=== PATIENT | female | born 1965 | race Caucasian/White ===

== ENCOUNTER → 2016-09-17 | Outpatient (CLI) | payer BC ==
[~2016-09-17] MED LIST: CALC500C3 PO; CALCCAP7 PO; CHONCAP PO; GLUCTAB7 PO; HYOS1TAB PO; INDA1TAB3 PO; LUMINEX PO; MULT-506 PO; SIMV10TA2 PO; [UNRECOGNIZED DRUG - REMARK] PO
--- NOTE | 2016-09-18 13:25 | MAMMOGRAPHY REPORT ---
BILATERAL DIGITAL SCREENING MAMMOGRAM TOMOSYNTHESIS WITH CAD: 09/17/2016 CLINICAL HISTORY: Routine screening examination. TECHNIQUE: Breast tomosynthesis in addition to standard 2D mammography was performed. Current study was also evaluated with a Computer Aided Detection (CAD) system. COMPARISON: Comparison is made to exams dated: 09/14/2015 mammogram, 09/13/2014 mammogram, 08/29/2012 m ammogram - [facility], 05/30/2009, 06/22/2010 mammogram, and 06/25/2011 mammogram - [facility]. BREAST COMPOSITION: The tissue of both breasts is heterogeneously dense, which may obscure small ma sses. FINDINGS: The parenchymal pattern is similar to prior exams. There is stable asymmetry in the far superior left breast on the MLO view. No developing mass, architectural distortion or cluster of goodman spicious microcalcifications is seen in either breast. IMPRESSION: ACR BI-RADS CATEGORY 2: BENIGN There is no mammographic evidence of malignancy. A 1 year screening mammogram is recommended. The p atient will receive written notification of the results. Approximately 10% of breast cancers are not detected with mammography. A negative mammographic repor t should not delay biopsy if a clinically suggestive mass is present. Jeannette eDleon M.D. ay/:09/17/2016 17:02:32 Energy Project Engineer: Seema CANTOR)(M), [facility] letter sent: Normal 1/2 BI-RADS Code: ACR BI-RADS Category 2: Benign
== END | disposition home or self-care (01) ==
LOC: C.MAMM 13:04
PROVIDERS: ATTEND Internal Medicine
DX: Z12.31 Encounter for screening mammogram for malignant neoplasm of breast (principal)

== ENCOUNTER → 2016-10-19 | Outpatient (CLI) | payer BC ==
[2016-10-19 09:33] LABS: BASO % 0.7 %; BASO ABS # 0.04 K/uL (0-0.2); COMPLETE YES; EOS % 4.7 %; HEMATOCRIT 41.2 % (37-47); IG% 0.2 %; LYMPH % 35.3 %; MEAN CELL VOLUME 86.4 fL (80-100); MEAN CORPUSCULAR HEMOGLOBIN 29.6 pg (25-34); MEAN CORPUSCULAR HGB CONC 34.2 g/dl (32-36); MEAN PLATELET VOLUME 8.6 fL (7.4-10.4); MONO % 6.4 %; NEUT % 52.7 %; PLATELET COUNT 283 K/uL (130-400); RED BLOOD COUNT 4.77 M/uL (4.2-5.4); WHITE BLOOD COUNT 5.95 K/uL (4.8-10.8)
[2016-10-19 10:06] LABS: ESTIMATED AVERAGE GLUCOSE 111 mg/dl; HA1C FLAG Normal (Normal)
[2016-10-19 10:13] LABS: ALT/SGPT 20 U/L (12-78); AST/SGOT 16 U/L (15-37); BLOOD UREA NITROGEN 13 mg/dl (7-18); BUN/CREATININE RATIO 20.8 (10-20); CALCIUM 9.1 mg/dl (8.5-10.1); CARBON DIOXIDE 33 mmol/L (21-32); CHLORIDE 99 mmol/L (98-107); CHOLESTEROL 201 mg/dl (0-200); CREATININE 0.62 mg/dl (0.60-1.20); GLUCOSE 92 mg/dl (70-99); POTASSIUM 2.8 mmol/L (3.5-5.1); SODIUM 139 mmol/L (136-145)
[2016-10-19 10:23] LABS: CHOLESTEROL/HDL RATIO 3.9; HDL CHOLESTEROL 52 mg/dl; LDL CHOLESTEROL CALCULATED 129 mg/dl; TRIGLYCERIDES 99 mg/dl (0-150); VERY LOW DENSITY LIPOPROT CALC 20 mg/dl
== END | disposition home or self-care (01) ==
LOC: C.LAB1850 08:42
PROVIDERS: ATTEND Internal Medicine
DX: E78.5 Hyperlipidemia, unspecified (principal)

== ENCOUNTER → 2017-03-04 | Outpatient (CLI) | payer BC ==
[~2017-03-04] MED LIST changes: -CHONCAP PO
== END | disposition home or self-care (01) ==
LOC: C.PAPS 16:29
PROVIDERS: ATTEND Obstetrics & Gynecology
DX: Z01.419 Encounter for gynecological examination (general) (routine) without abnormal findings (principal); R87.610 Atypical squamous cells of undetermined significance on cytologic smear of cervix (ASC-US)

== ENCOUNTER → 2017-03-05 | Outpatient (CLI) | payer BC ==
[~2017-03-05] MED LIST changes: +GADAVIST IV PRN
--- NOTE | 2017-03-05 12:17 | DIAGNOSTIC IMAGING REPORT ---
MRI OF THE BRAIN WITHOUT AND WITH IV CONTRAST CLINICAL HISTORY: MEN ANGIOMA COMPARISON STUDY: 01/10/2016 TECHNIQUE: Utilizing a 1.5 Kacey magnet and dedicated coil, multiplanar, multiecho imaging of the brain was performed pre and postcontrast administration. IV administration of 8.5 mL of Gadavist contrast was uneventful. FINDINGS: Unchanged exam compared to the prior study. The right parietal meningioma is unchanged in dimension with current dimensions of 7 x 4 mm. Signal characteristics of the remainder the brain remain unremarkable. Stable 4 mm enhancing focus superior aspect left internal auditory canal. No new or interval findings. No evidence for progressive process. Sella and parasellar region is unremarkable. Minimal foci of increased signal within the periventricular deep white matter regions also stable. IMPRESSION: 1. Stable exam. 2. Unchanging findings of a left retromastoid craniectomy 3. Unchanging size of a 4 mm nodular enhancing focus superior aspect left internal auditory canal. 4. Unchanging right parietal meningioma Electronically signed by: Dario Ocasio M.D. 03/05/2017 12:16 PM Dictated Date/Time: 03/05/2017 12:10 PM
== END | disposition home or self-care (01) ==
LOC: C.MRI 09:16
PROVIDERS: ATTEND Neurological Surgery
DX: D32.9 Benign neoplasm of meninges, unspecified (principal)

== ENCOUNTER → 2017-03-06 | Day surgery (SDC) | payer BC ==
[2017-02-25 12:30] VITALS: Ht 149.9 cm; Wt 54.5 kg
[~2017-03-06] VITALS: Ht 149.9 cm; Wt 54.5 kg
[~2017-03-06] MED LIST changes: -GADAVIST IV PRN; +LIDOCAINE HCL 2% 2 ML VIAL (20MG/ML) ONE; +PROPOFOL IV EMULSION 10 MG/ML 20 ML VIAL IV ONE
--- NOTE | 2017-03-06 13:25 | Endo History and Physical ---
History & Physical Date of Service: Mar 06, 2017. Chief Complaint: Screening Referring Physician: Diego History of Present Illness 51 yo CF who presents for screening colonoscopy. Past Surgical History Hx Cardiac Surgery: No Hx Internal Defibrillator: No Hx Pacemaker: No Hx Abdominal Surgery: No Hx of Implantable Prosthesis: No Hx Post-Op Nausea and Vomiting: No Hx Cancer Surgery: No Hx Thoracic Surgery: No Hx Orthopedic: No Hx Urinary Tract Surgery: Yes (BLADDER TACK) Family History IBD Social History Smoking Status: Never Smoker Hx Substance Use: No Hx Alcohol Use: Yes (rare-socially) Allergies Coded Allergies: Tetracycline (Verified Allergy, Intermediate, HIVES, 03/05/17) Current Medications Reported Home Medications Medications Dose Route/Sig Max Daily Dose Days Date Category Dose Instructions Levsin (Hyoscyamine Sulfate) 0.125 Mg Tab 0.125 Mg PO PRN 02/25/17 Reported Tums (Calcium Carbonate) 500 Mg Chew 2 Tab PO PRN 02/25/17 Reported Multivitamin (Multivitamins) Tab 1 Tab PO QAM 02/25/17 Reported Glucosamine Chondroitin (Sefeifezmwb-Ttfewwxzjzv-Hra C-) 1 Tab Tab 1 Tab PO QAM 02/25/17 Reported Lozol (Indapamide) 1.25 Mg Tab 1.25 Mg PO HS 01/04/16 Reported [luminex] 1 Tab PO PRN 03/17/13 Reported herbal supplement for anxiety [selwise] 1 Tab PO QAM 03/17/13 Reported herbal supplement-HAIR AND SKIN NAILS Calcium Plus Vitamin D (Calcium Carbonate-Vitamin D) 1 Cap Cap 2 Tab PO DAILY AFTERNOON 03/17/13 Reported Zocor (Simvastatin) 10 Mg Tab 10 Mg PO QPM 03/17/13 Reported Vital Signs Weight (Kilograms): 54.55 Height (Feet): 4 Height (Inches): 11 Date Time Temp Pulse Resp B/P (MAP) Pulse Ox O2 Delivery O2 Flow Rate FiO2 03/06/17 13:03 36.9 63 18 128/68 (88) 99 Room Air Physical Exam General Appearance: WD/WN, no apparent distress Respiratory/Chest: Auscultation: breath sounds normal Cardiovascular: Heart Auscultation: RRR Abdomen: Bowel Sounds: normal Inspection & Palpation: soft, non-distended, no tenderness, guarding & rebound Assessment and Plan Assessment: 51 yo CF who presents for screening colonoscopy. Plan: Proceed with colonoscopy.
--- NOTE | 2017-03-06 14:02 | Discharge Instructions ---
Endoscopy Patient Instructions Date / Procedure(s) Performed Mar 06, 2017. Colonoscopy Allergy Information Coded Allergies: Tetracycline (Verified Allergy, Intermediate, HIVES, 03/05/17) Discharge Date / Findings Mar 06, 2017. Melanosis coli Internal hemorrhoids Medication Instructions OK to resume all medications today as prescribed Reported Home Medications Medications Dose Route/Sig Max Daily Dose Days Date Category Dose Instructions Levsin (Hyoscyamine Sulfate) 0.125 Mg Tab 0.125 Mg PO PRN 02/25/17 Reported Tums (Calcium Carbonate) 500 Mg Chew 2 Tab PO PRN 02/25/17 Reported Multivitamin (Multivitamins) Tab 1 Tab PO QAM 02/25/17 Reported Glucosamine Chondroitin (Ujswdolojjo-Mlomcnrnolg-Pnz C-) 1 Tab Tab 1 Tab PO QAM 02/25/17 Reported Lozol (Indapamide) 1.25 Mg Tab 1.25 Mg PO HS 01/04/16 Reported [luminex] 1 Tab PO PRN 03/17/13 Reported herbal supplement for anxiety [selwise] 1 Tab PO QAM 03/17/13 Reported herbal supplement-HAIR AND SKIN NAILS Calcium Plus Vitamin D (Calcium Carbonate-Vitamin D) 1 Cap Cap 2 Tab PO DAILY AFTERNOON 03/17/13 Reported Zocor (Simvastatin) 10 Mg Tab 10 Mg PO QPM 03/17/13 Reported Provider Instructions Activity Restrictions - No exercising or heavy lifting for 24 hours. - Do not drink alcohol the day of the procedure. - Do not drive a car or operate machinery until the day after the procedure. - Do not make any important decisions or sign important papers in 24 hours after the procedure. Following Day: - Return to full activity which may include returning to work/school. Diet Start your diet with liquids and light foods (jello, soup, juice, toast). Then eat your usual diet if not nauseated. Treatment For Common After Affects For mild abdominal pain, bloating, or excessive gas: - Rest - Eat lightly - Lie on right side Follow-Up Information Follow-up with Diego as scheduled Anesthesia Information What You Should Know You have had a procedure that required some medicine to reduce anxiety and discomfort. This treatment is called moderate sedation. After receiving the treatment, you may be sleepy, but you will be able to breathe on your own. The effects of the treatment may last for several hours. Follow these instructions along with Activity/Diet recommendations noted above: * Do NOT do anything where dizziness or clumsiness would be dangerous. * Rest quietly at home today, then you can be up and about tomorrow. * Have a responsible person stay with you the rest of today. * You may have had an I.V. today. If so, you may take the dressing off later today. Recommendations Call your doctor if: * Trouble breathing * Continuous vomiting for more than 24 hours * Temperature above 101 degrees * Severe abdominal pain or bloating * Pain not relieved by pain medicine ordered * There is increased drainage or redness from any incision * A large amount of rectal bleeding greater than 2-3 tablespoons. (If you had a polyp/s removed or have hemorrhoids, a small amount of blood - from the rectum is to be expected.) * You have any unanswered questions or concerns. IN THE EVENT OF A SERIOUS EMERGENCY, GO TO THE NEAREST EMERGENCY ROOM Your discharge instructions were prepared by provider Isrrael Talavera. Patient Instructions Signature Page Leny Pineda Patient (or Guardian) Signature/Date: I have read and understand the instructions given to me by my caregivers. Caregiver/RN/Doctor Signature/Date: The above-named patient and/or guardian has received patient instructions on this date. + Original Patient Signature Page (only) stays with chart. Please make copy for patient.
--- NOTE | 2017-03-06 14:08 | Anesthesiology Progress Note ---
Anesthesia Post Op Note Date & Time Mar 06, 2017 at 14:08 Vital Signs Pain Intensity: 0 Vital Signs Past 12 Hours Date Time Temp Pulse Resp B/P (MAP) Pulse Ox O2 Delivery O2 Flow Rate FiO2 03/06/17 13:03 36.9 63 18 128/68 (88) 99 Room Air Notes Mental Status: alert / awake / arousable, participated in evaluation Pt Amnestic to Procedure: Yes Nausea / Vomiting: adequately controlled Pain: adequately controlled Airway Patency, RR, SpO2: stable & adequate BP & HR: stable & adequate Hydration State: stable & adequate Anesthetic Complications: no major complications apparent
--- NOTE | 2017-03-06 14:10 | GI REPORT ---
Procedure Date: 03/06/2017 1:39 PM Procedure: Colonoscopy Indications: Screening for colorectal malignant neoplasm Medicines: Monitored Anesthesia Care Complications: No immediate complications. Estimated Blood Loss: Estimated blood loss: none. Procedure: Pre-Anesthesia Assessment: - Prior to the procedure, a History and Physical was performed, and patient medications and allergies were reviewed. The patient's tolerance of previous anesthesia was also reviewed. The risks and benefits of the procedure and the sedation options and risks were discussed with the patient. All questions were answered, and informed consent was obtained. Prior Anticoagulants: The patient has taken no previous anticoagulant or antiplatelet agents. ASA Grade Assessment: II - A patient with mild systemic disease. After reviewing the risks and benefits, the patient was deemed in satisfactory condition to undergo the procedure. After I obtained informed consent, the scope was passed under direct vision. Throughout the procedure, the patient's blood pressure, pulse, and oxygen saturations were monitored continuously. The On-site loaner was introduced through the anus and advanced to the terminal ileum. The colonoscopy was performed without difficulty. The patient tolerated the procedure well. The quality of the bowel preparation was good. The terminal ileum, ileocecal valve, appendiceal orifice, and rectum were photographed. Findings: A diffuse area of mild melanosis was found in the entire colon. Non-bleeding internal hemorrhoids were found during retroflexion. The hemorrhoids were small. Impression: - Melanosis in the colon. - Non-bleeding internal hemorrhoids. - No specimens collected. Recommendation: - Resume previous diet. - Continue present medications. - Repeat colonoscopy in 10 years for surveillance. - Return to primary care physician as previously scheduled. Isrrael Talavera, DO 03/06/2017 2:10:12 PM This report has been signed electronically. Note Initiated On: 03/06/2017 1:39 PM I attest to the content of the Intraoperative Record and orders documented therein, exceptions below
[2017-03-06 14:17] VITALS: BP 106/58; PULSE 66; O2SAT 100
== END | disposition home or self-care (01) ==
LOC: C.GI 12:33
PROVIDERS: ATTEND Internal Medicine
DX: Z12.11 Encounter for screening for malignant neoplasm of colon (principal); K63.89 Other specified diseases of intestine; K64.8 Other hemorrhoids

== ENCOUNTER → 2017-05-06 | Outpatient (CLI) | payer BC ==
[~2017-05-06] MED LIST changes: -LIDOCAINE HCL 2% 2 ML VIAL (20MG/ML) ONE; -PROPOFOL IV EMULSION 10 MG/ML 20 ML VIAL IV ONE
[2017-05-06 13:17] LABS: BASO % 0.3 %; BASO ABS # 0.03 K/uL (0-0.2); COMPLETE YES; EOS % 1.3 %; HEMATOCRIT 40.3 % (37-47); IG% 0.2 %; LYMPH % 19.4 %; LYMPH ABS # 1.85 K/uL (1.2-3.4); MEAN CORPUSCULAR HGB CONC 34.5 g/dl (32-36); MEAN PLATELET VOLUME 8.5 fL (7.4-10.4); MONO % 4.7 %; NEUT % 74.1 %; PLATELET COUNT 315 K/uL (130-400); RED BLOOD COUNT 4.63 M/uL (4.2-5.4); WHITE BLOOD COUNT 9.52 K/uL (4.8-10.8)
[2017-05-06 13:24] LABS: URINE APPEARANCE CLEAR (CLEAR); URINE COLOR DK YELLOW; URINE EPITHELIAL CELL AUTO 20-30 /lpf (0-5); URINE NITRITE NEG (NEG); URINE SPECIFIC GRAVITY 1.029 (1.000-1.030); UROBILINOGEN NEG (NEG)
[2017-05-06 13:38] LABS: MANUAL MICROSCOPIC REQUIRED? NO; REVIEW REQ? NO; URINE BILIRUBIN NEG (NEG)
[2017-05-06 13:51] LABS: ESTIMATED AVERAGE GLUCOSE 111 mg/dl; HA1C FLAG Normal (Normal)
[2017-05-06 13:55] LABS: ALT/SGPT 17 U/L (12-78); AST/SGOT 13 U/L (15-37); BLOOD UREA NITROGEN 10 mg/dl (7-18); BUN/CREATININE RATIO 18.5 (10-20); CALCIUM 8.9 mg/dl (8.5-10.1); CARBON DIOXIDE 33 mmol/L (21-32); CHLORIDE 99 mmol/L (98-107); CHOLESTEROL 177 mg/dl (0-200); CREATININE 0.55 mg/dl (0.60-1.20); GLUCOSE 86 mg/dl (70-99); SODIUM 138 mmol/L (136-145); TRIGLYCERIDES 85 mg/dl (0-150); VERY LOW DENSITY LIPOPROT CALC 17 mg/dl
[2017-05-06 14:05] LABS: CHOLESTEROL/HDL RATIO 3.3; HDL CHOLESTEROL 54 mg/dl; LDL CHOLESTEROL CALCULATED 106 mg/dl
== END | disposition home or self-care (01) ==
LOC: C.LAB1850 11:36
PROVIDERS: ATTEND Internal Medicine
DX: E78.5 Hyperlipidemia, unspecified (principal)

== ENCOUNTER → 2017-06-17 | Outpatient (CLI) | payer BC ==
--- NOTE | 2017-06-17 14:00 | DIAGNOSTIC IMAGING REPORT ---
SINUSES MIN 3 VIEWS ROUTINE CLINICAL HISTORY: J32.9 Sinusitis pain COMPARISON STUDY: 04/09/2013 FINDINGS: Stable postoperative changes of the left retromastoid region. Sinuses are considered clear. There is no significant mucosal thickening. Orbital margins are intact. IMPRESSION: No acute process. The above report was generated using voice recognition software. It may contain grammatical, syntax or spelling errors. Electronically signed by: Dario Ocasio M.D. 06/17/2017 1:58 PM Dictated Date/Time: 06/17/2017 1:57 PM
== END | disposition home or self-care (01) ==
LOC: C.RAD1850 13:20
PROVIDERS: ATTEND Physician Assistant
DX: J32.9 Chronic sinusitis, unspecified (principal)

== ENCOUNTER → 2017-09-18 | Outpatient (CLI) | payer OTHER ==
--- NOTE | 2017-09-18 15:41 | MAMMOGRAPHY REPORT ---
BILATERAL DIGITAL SCREENING MAMMOGRAM TOMOSYNTHESIS WITH CAD: 09/18/2017 CLINICAL HISTORY: Routine screening. Patient has no complaints. TECHNIQUE: Breast tomosynthesis in addition to standard 2D mammography was performed. Current study was also evaluated with a Computer Aided Detection (CAD) system. COMPARISON: Comparison is made to exams dated: 09/17/2016 mammogram, 09/14/2015 mammogram, 09/13/2014 m ammogram, 09/10/2013 mammogram, 08/29/2012 mammogram, and 06/25/2011 mammogram - [facility] enter. BREAST COMPOSITION: The tissue of both breasts is heterogeneously dense, which may obscure small mas ses. FINDINGS: The parenchymal pattern is similar to prior exams. There are stable asymmetries in the goodman perior posterior left breast on the MLO view. No developing mass, architectural distortion or cluste r of suspicious microcalcifications is seen in either breast. IMPRESSION: ACR BI-RADS CATEGORY 2: BENIGN There is no mammographic evidence of malignancy. A 1 year screening mammogram is recommended. The pa tient will receive written notification of the results. Approximately 10% of breast cancers are not detected with mammography. A negative mammographic report should not delay biopsy if a clinically suggestive mass is present. Jeannette Deleon M.D. ay/:09/18/2017 10:11:57 Ladle Liner Helper: Skylar ARRIETA(Chante)(), [facility] letter sent: Normal 1/2 BI-RADS Code: ACR BI-RADS Category 2: Benign
== END | disposition home or self-care (01) ==
LOC: C.MAMM 09:48
PROVIDERS: ATTEND Internal Medicine
DX: Z12.31 Encounter for screening mammogram for malignant neoplasm of breast (principal)

== ENCOUNTER → 2018-01-10 | Outpatient (CLI) | payer OTHER ==
[~2018-01-10] MED LIST changes: +GADAVIST IV PRN
--- NOTE | 2018-01-10 09:40 | DIAGNOSTIC IMAGING REPORT ---
BRAIN COMBO HISTORY: 52 years-old Female D32.0 Cerebellar [id number] follow-up study in a patient with prior meningioma resection. COMPARISON: Brain MRI 03/05/2017 , 01/10/2016 and 09/12/2012 TECHNIQUE: Multiplanar multisequence MRI of the brain was obtained both with and without the use of 5 mL Gadavist FINDINGS: There is no restricted diffusion to suggest acute or subacute infarction. Midline structures including the corpus callosum, brainstem, optic chiasm, pituitary and pineal glands are unremarkable in the sagittal T1 series. No cerebellar tonsillar herniation. Major flow voids at the level the skull base appear patent. Orbits are symmetric and within normal limits. Paranasal sinuses are generally clear. Postoperative changes from prior left occipital craniotomy. Extra-axial fluid adjacent to the lateral aspect of the left cerebellar hemisphere is redemonstrated, 4.4 x 0.8 cm, image 6 series 5 is unchanged mild micrometallic artifact also noted within this distribution. Avidly enhancing 5 x 4 mm lesion along the superior aspect of the left internal auditory canal, image 27 series 10 appears slightly increased in size from comparison where previously measured up to 4 mm. No additional abnormal intra-axial or extra-axial enhancement identified. No acute intracranial hemorrhage or midline shift. No hydrocephalus. Indeterminate 3 mm focus of mildly increased T2/FLAIR signal within the right frontal lobe, image 14 series 7 is likely of no clinical significance. Dural based 8 x 6 mm avidly enhancing lesion adjacent to the frontal lobe at the vertex, image 12 series 9 is unchanged. IMPRESSION: 1. Slightly increased size of the avidly enhancing lesion about the superior aspect of the left internal auditory canal, now measuring 5 mm, previously 4 mm suggesting recurrent meningioma. 2. Unchanged 8 mm meningioma adjacent to the right frontal lobe near the vertex. The above report was generated using voice recognition software. It may contain grammatical, syntax or spelling errors. Electronically signed by: Johny Ramos M.D. 01/10/2018 9:38 AM Dictated Date/Time: 01/10/2018 9:25 AM
== END | disposition home or self-care (01) ==
LOC: C.MRI 08:32
PROVIDERS: ATTEND Internal Medicine
DX: D32.0 Benign neoplasm of cerebral meninges (principal)

== ENCOUNTER → 2018-03-28 | Outpatient (CLI) | payer OTHER ==
[~2018-03-28] MED LIST changes: -GADAVIST IV PRN
== END | disposition home or self-care (01) ==
LOC: C.PAPS 13:59
PROVIDERS: ATTEND Obstetrics & Gynecology
DX: Z01.411 Encounter for gynecological examination (general) (routine) with abnormal findings (principal); R87.610 Atypical squamous cells of undetermined significance on cytologic smear of cervix (ASC-US)